=== PATIENT | female | born 1945 | race African-American/Black ===

== ENCOUNTER 2020-09-25 12:23 | Inpatient (IN) | payer MEDICARE ==
[~2020-09-25] VITALS: Ht 177.8 cm; Wt 54.4 kg
--- NOTE | 2020-09-25 12:48 | NUR ---
DR. MARTIN TALKING TO FAMILY AT BEDSIDE.
[2020-09-25] MEDS ORDERED: ACET325T53 PO (12:52)
[2020-09-25] MEDS ORDERED: ASPI-1169 PO (12:52)
[2020-09-25] MEDS ORDERED: ENOX40DI SQ (12:52)
[2020-09-25] MEDS ORDERED: GABA-532 PO (12:52)
[2020-09-25] MEDS ORDERED: HYDR-4303 PO (12:52)
[2020-09-25] MEDS ORDERED: METO50TA16 PO (12:52)
[2020-09-25] MEDS ORDERED: IV NS 0.9% 1,000 ML BAG IV ONE (13:00)
[2020-09-25 13:36] LABS: BASOPHILS % (AUTO) 0.1 % (0.0-2.0); EOSINOPHILS % (AUTO) 0.9 % (0.0-6.0); HEMATOCRIT 34 % (33-45); HEMOGLOBIN 10.9 g/dL (11.5-14.8); LYMPHOCYTES # (AUTO) 0.3 K/uL (0.8-4.8); MEAN CORPUSCULAR HGB CONC 32 g/dl (31.0-36.0); MEAN CORPUSCULAR VOLUME 85 fL (82-100); MONOCYTES # (AUTO) 0.3 K/uL (0.1-1.30); MONOCYTES % (AUTO) 1.9 % (2.0-12.0); NEUTROPHILS # (AUTO) 14.6 K/uL (1.8-8.9); NEUTROPHILS % (AUTO) 95.1 % (43.0-81.0); PLATELET COUNT (AUTO) 286 K/uL (150-450); RED BLOOD CELL COUNT(AUTO) 4.03 MIL/uL (4.0-5.2); WHITE BLOOD COUNT (AUTO) 15.4 K/uL (4.3-11.0)
--- NOTE | 2020-09-25 13:49 | NUR ---
Bri Lorenzo, older sister. [phone]. cell [phone] Durable Power of Attorney Aquino, sister, also agrees with DNR and comfort measures. Addendum: 09/25/20 at 1353 by BRAD Kenia, sister. [phone]
[2020-09-25 13:53] LABS: ALANINE AMINOTRANSFERASE 165 U/L (12-78); ALKALINE PHOSPHATASE 142 U/L (46-116); ASPARTATE AMINOTRANSFERASE 532 U/L (15-37); BILIRUBIN,DIRECT 0.2 mg/dL (0.0-0.2); BILIRUBIN,TOTAL 0.3 mg/dL (0.2-1.0); CALCIUM, SERUM 7.9 mg/dL (8.5-10.1); CARBON DIOXIDE 16 mmol/L (21-32); CHLORIDE 97 mmol/L (98-107); CREATININE 4.6 mg/dL (0.6-1.3); GLUCOSE 91 mg/dL (74-106); SODIUM SERUM 132 mmol/L (136-145); TOTAL PROTEIN, SERUM 5.1 g/dL (6.4-8.2)
[2020-09-25 13:55] LABS: ALBUMIN 1.3 g/dL (3.4-5.0); POTASSIUM 6.9 mmol/L (3.5-5.1); UREA NITROGEN, BLOOD 116 mg/dL (7-18)
--- NOTE | 2020-09-25 14:48 | NUR ---
BED 307-1
--- NOTE | 2020-09-25 15:29 | NUR ---
KENZIE FROM HOME TO ER BED 5. OBTUNEDED, ARROUSABLE BUT DIFFICULT. SOB. BROUGHT IN FOR ALTERED MENTAL STATUS. PER EMS REPORTS, PT WAS NOT RESPONSIVE. PLACED ON O2 VIA NRB @ 15LPM. PT ALSO NOTED HYPOTENSIVE IN THE 70s. AT BESIDE FOR EVAL.
--- NOTE | 2020-09-25 16:13 | NUR ---
REPROT GIVEN TO GERARDO CARNEY FOR JENNIFER
[2020-09-25 16:17] VITALS: BP 78/42
--- NOTE | 2020-09-25 16:59 | NUR ---
PT TRANSPORTED TO UNIT ON [facility] WITH EMT AT [facility]. NAD NOTED DURING TRANSPORT
[2020-09-25] MEDS ORDERED: MORPHINE SULFATE PF DRIP 250 MG in IV D5W 240 ML IV PRN (19:00)
[2020-09-25] MEDS ORDERED: LORAZEPAM INJ 2 MG/ML VIAL IVP PRN (19:00)
[2020-09-25] MEDS ORDERED: SCOPOLAMINE PATCH 1 MG/72HR TD PRN (19:00)
[2020-09-25] MEDS ORDERED: LORAZEPAM INJ 2 MG/ML VIAL IV PRN (20:00)
--- NOTE | 2020-09-25 20:00 | NUR ---
MS RN OPENING NOTES PATIENT ALERT/ORIENTED X 0, PT NON-VERBAL AT THIS TIME. PT IS DNR AND COMFORT CARES ONLY, NO LAB DRAWS, VITALS OR OTHER INTERVENTIONS. FAMILY IS AT BEDSIDE. RIGHT UPPER ARM #20G INTACT AND FLUSHING WELL. PATIENT BEDBOUND AND INCONTINENT, WELL NPO. PATIENT ON O2 VIA NRB @ 15LPM, NO S/S OF DISTRESS OR SHORTNESS OF BREATH NOTED, PATIENT APPEARS COMFORTABLE AND SLEEPING. SAFETY MEASURES IN PLACE, CALL LIGHT WITHIN REACH, BED LOCKED IN LOWEST POSITION, SIDE RAILS UP X 3. WILL CONTINUE TO MONITOR AND PROVIDE SUPPORT FOR FAMILY
[2020-09-25] MEDS ORDERED: KEY,NONCONTROL,TO KEEP IN PYXI 1 EA MC ONE (20:51)
--- NOTE | 2020-09-25 21:05 | NUR ---
MS RN NOTES PATIENT STARTED ON MORPHINE DRIP WITH HAY STACKER PUMP 2 MG/HR ORDERED, WITNESSED BY CHARGE NURSE MALGORZATA. WILL CONTINUE TO MONITOR
--- NOTE | 2020-09-26 04:33 | NUR ---
PATIENT NOTED TO BE NONRESPOSIVE, NO RESPIRATION, NO PULSE,NO BP, PUPILS FIXED AND DILATED.PT ON DNR/COMFORT MEASURES ONLY STAUS. PATIENT PRONOUNCED AT THIS TIME, FAMILY AT BEDSIDE. AWAITING FOR RODDY BLEDSOE(KRISTY) TO SIGN RELEASE OF REMAINS
[2020-09-26] MEDS ORDERED: KEY,NONCONTROL,TO KEEP IN PYXI 1 EA MC ONE (05:40)
--- NOTE | 2020-09-26 08:30 | NUR ---
REMAINS IN THE BAG TAKEN AT THE [place] BY THE SECURITY AND CHICHO RUIZ. FAMILY AT BEDSIDE.
== END 2020-09-26 04:33 | DRG 871 ==
LOC: ER 12:28 → MED 17:03
PROVIDERS: ADMIT Family Medicine; ATTEND Family Medicine
DX: A41.9 Sepsis, unspecified organism (principal); E43 Unspecified severe protein-calorie malnutrition; G93.41 Metabolic encephalopathy; J18.9 Pneumonia, unspecified organism; E87.1 Hypo-osmolality and hyponatremia; N17.9 Acute kidney failure, unspecified; E87.2 Acidosis; Z20.822 Contact with and (suspected) exposure to COVID-19; C53.9 Malignant neoplasm of cervix uteri, unspecified; E87.5 Hyperkalemia; Z66 Do not resuscitate; E88.09 Other disorders of plasma-protein metabolism, not elsewhere classified; R74.01 Elevation of levels of liver transaminase levels; I95.9 Hypotension, unspecified; Z51.5 Encounter for palliative care; Z79.82 Long term (current) use of aspirin
CPT/HCPCS: 36415; 71045-TC; 80048-TC; 80076-TC; 83605-TC; 84484-TC; 85025-TC; 85730-TC; 87040-TC; 87081-TC; C9803; G0378; J2274; J7030; J7050; J7060